=== PATIENT | female | born 1980 | race Caucasian/White ===

== ENCOUNTER 2017-01-19 01:31 | Emergency (ER) | payer SELFPAY ==
[~2017-01-19] VITALS: Ht 160 cm; Wt 55.5 kg
[2017-01-19 01:32] VITALS: BP 112/77
[2017-01-19] MEDS ORDERED: KETOROLAC 30 MG/1 ML ONE (02:00)
[2017-01-19] MEDS ORDERED: PHENAZOPYRIDINE 200 MG TABLET ONE (02:00)
[2017-01-19] MEDS ORDERED: KETOROLAC 30 MG/1 ML IM ONE (02:00)
[2017-01-19] MEDS ORDERED: PHENAZOPYRIDINE 200 MG TABLET PO ONE (02:00)
[2017-01-19 02:22] LABS: BLOOD UREA NITROGEN 16 mg/dL (7-18)
[2017-01-19] MEDS ORDERED: AZITHROMYCIN 500 MG TABLET PO ONE (02:30)
[2017-01-19] MEDS ORDERED: CEFTRIAXONE 250 MG IM ONE (02:30)
[2017-01-19] MEDS ORDERED: CEFTRIAXONE 250 MG ONE (02:39)
[2017-01-19] MEDS ORDERED: AZITHROMYCIN 500 MG TABLET ONE (02:39)
[2017-01-19] MEDS ORDERED: LIDOCAINE 1%, 20ML ONE (02:41)
== END 2017-01-19 04:04 | disposition home or self-care (01) ==
LOC: ED 03:56
DX: N76.0 Acute vaginitis (principal); N30.91 Cystitis, unspecified with hematuria
CPT/HCPCS: 36415; 76830; 80048; 81001; 82040; 84703; 85025; 87077; 87086; 87186; 87210; 87491; 87591; 87808; 96372; 99285; J0696; J1885

== ENCOUNTER 2017-05-13 03:37 | Inpatient (IN) | payer MEDICAID, OTHER ==
[~2017-05-13] VITALS: Ht 160 cm; Wt 47.1 kg
[2017-05-13] MEDS ORDERED: HYDROcodone/APAP 5/325 TABLET ONE (04:09)
[2017-05-13] MEDS ORDERED: HYDROcodone/APAP 5/325 TABLET PO ONE (04:30)
[2017-05-13] MEDS ORDERED: HYDROmorphone 2 MG/ML, 1ML ONE (04:56)
[2017-05-13] MEDS ORDERED: HYDROmorphone 1 MG/ML, 1ML IM ONE (05:00)
[2017-05-13 08:49] VITALS: BP 115/77
[2017-05-13] MEDS ORDERED: POLYETHYLENE GLYCOL 17 GM PACKET PO PRN (09:00)
[2017-05-13] MEDS ORDERED: ONDANSETRON 2MG/ML, 2ML IVPush PRN (09:00)
[2017-05-13] MEDS: SENNA/DOCUSATE TABLET PO SCH (09:00)
[2017-05-13] MEDS ORDERED: GUAIFENESIN/DM 200-20MG, 10ML UDC PO PRN (09:00)
[2017-05-13] MEDS: FAMOTIDINE 20 MG/2 ML IVPush SCH ×2 (09:00→21:31)
[2017-05-13] MEDS ORDERED: ONDANSETRON ODT 4 MG PO PRN (09:00)
[2017-05-13] MEDS ORDERED: LABETALOL 5MG/ML, 20ML IVPush PRN (09:00)
[2017-05-13] MEDS ORDERED: MORPHINE SULFATE 4 MG/ML, 1ML ONE ×2 (09:07→10:39)
[2017-05-13] MEDS: morphine SULFATE 10 MG/ML, 1ML IVPush PRN ×5 (09:11→23:22)
[2017-05-13] MEDS: D5%-0.45% NACL 1,000 ML IV SCH ×2 (09:11→18:40)
[2017-05-13 09:46] LABS: BASOPHILS # (AUTO) 0.05 x10^3/uL (0-0.1); BASOPHILS % (AUTO) 0 % (0-1); EOSINOPHILS # (AUTO) 0.03 x10^3/uL (0-0.4); EOSINOPHILS % (AUTO) 0 % (1-7); LYMPHOCYTES # (AUTO) 1.33 x10^3/uL (1-3.4); LYMPHOCYTES % (AUTO) 9 % (22-44); MD NO; MEAN CORPUSCULAR HEMOGLOBIN 34.1 pg (27.0-34.8); MEAN CORPUSCULAR HGB CONC 33.8 g/dL (32.4-35.8); MEAN CORPUSCULAR VOLUME 100.8 fL (80-100); MEAN PLATELET VOLUME 10.7 fL (7.4-10.4); MONOCYTES # (AUTO) 0.42 x10^3/uL (0.2-0.8); MONOCYTES % (AUTO) 3 % (2-9); NEUTROPHILS # (AUTO) 12.67 x10^3/uL (1.8-6.8); NEUTROPHILS % (AUTO) 87 % (42-75); PLATELET COUNT 136 x10^3/uL (130-400); RED BLOOD COUNT 4.07 x10^6/uL (3.82-5.3); RED CELL DISTRIBUTION WIDTH 12.8 % (9.6-15.2)
[2017-05-13 09:56] LABS: ANION GAP 6 mmol/L (5-15); CALCIUM 8.4 mg/dL (8.5-10.1); CHLORIDE 106 mmol/L (98-107); CREATININE 0.67 mg/dL (0.55-1.02)
[2017-05-13 09:57] LABS: ALANINE AMINOTRANSFERASE 23 U/L (12-78); ALBUMIN 3.6 g/dL (3.4-5.0)
[2017-05-13 09:59] LABS: ALKALINE PHOSPHATASE 55 U/L (45-117); BILIRUBIN,TOTAL 0.5 mg/dL (0.2-1.0); TOTAL PROTEIN 6.9 g/dL (6.4-8.2)
[2017-05-13 14:00] VITALS: BP 118/73
[2017-05-13 16:17] LABS: CULTURE INDICATED? YES; MICROSCOPIC INDICATED
[2017-05-13 16:23] LABS: AMPHETAMINE SCREEN, URINE Positive (Negative); BARBITURATE SCREEN, URINE Negative (Negative); BENZODIAZEPINE SCREEN, URINE Negative (Negative); CANNABINOID SCREEN, URINE Positive (Negative); COCAINE SCREEN, URINE Negative (Negative); METHADONE SCREEN, URINE Negative (Negative); OPIATE SCREEN, URINE Positive (Negative)
[2017-05-13] MEDS: HYDROcodone/APAP 5/325 TABLET PO PRN ×2 (17:37→21:31)
[2017-05-13 20:41] VITALS: BP 111/74
[2017-05-14] MEDS: HYDROcodone/APAP 5/325 TABLET PO PRN ×4 (02:47→20:28)
[2017-05-14] MEDS: D5%-0.45% NACL 1,000 ML IV SCH ×3 (02:48→23:25)
[2017-05-14 04:02] VITALS: BP 119/77
[2017-05-14] MEDS: morphine SULFATE 10 MG/ML, 1ML IVPush PRN ×4 (04:04→21:48)
[2017-05-14 07:37] LABS: BASOPHILS # (AUTO) 0.02 x10^3/uL (0-0.1); BASOPHILS % (AUTO) 0 % (0-1); EOSINOPHILS # (AUTO) 0.22 x10^3/uL (0-0.4); EOSINOPHILS % (AUTO) 3 % (1-7); LYMPHOCYTES # (AUTO) 2.25 x10^3/uL (1-3.4); LYMPHOCYTES % (AUTO) 32 % (22-44); MD NO; MEAN CORPUSCULAR HEMOGLOBIN 34.2 pg (27.0-34.8); MEAN CORPUSCULAR HGB CONC 33.7 g/dL (32.4-35.8); MEAN CORPUSCULAR VOLUME 101.4 fL (80-100); MONOCYTES % (AUTO) 7 % (2-9); NEUTROPHILS # (AUTO) 4.12 x10^3/uL (1.8-6.8); NEUTROPHILS % (AUTO) 58 % (42-75); PLATELET COUNT 124 x10^3/uL (130-400); RED BLOOD COUNT 3.93 x10^6/uL (3.82-5.3)
[2017-05-14] MEDS: SENNA/DOCUSATE TABLET PO SCH (07:45)
[2017-05-14 07:49] LABS: ALANINE AMINOTRANSFERASE 17 U/L (12-78); ALBUMIN 3.1 g/dL (3.4-5.0); ANION GAP 6 mmol/L (5-15); CALCIUM 8.1 mg/dL (8.5-10.1); CHLORIDE 108 mmol/L (98-107); CREATININE 0.75 mg/dL (0.55-1.02)
[2017-05-14 07:51] LABS: ALKALINE PHOSPHATASE 49 U/L (45-117); BILIRUBIN,TOTAL 0.5 mg/dL (0.2-1.0); TOTAL PROTEIN 6.4 g/dL (6.4-8.2)
[2017-05-14] MEDS: FAMOTIDINE 20 MG/2 ML IVPush SCH ×2 (07:51→21:48)
[2017-05-14 08:13] VITALS: BP 105/70
[2017-05-14 13:30] VITALS: BP 110/72
[2017-05-14 13:52] VITALS: BP 107/66
[2017-05-14 20:29] VITALS: BP 118/69
[2017-05-15] MEDS: HYDROcodone/APAP 5/325 TABLET PO PRN ×6 (01:59→21:28)
[2017-05-15 02:14] VITALS: BP 105/69
[2017-05-15] MEDS: SENNA/DOCUSATE TABLET PO SCH (05:39)
[2017-05-15 05:49] LABS: BASOPHILS # (AUTO) 0.04 x10^3/uL (0-0.1); BASOPHILS % (AUTO) 0 % (0-1); EOSINOPHILS % (AUTO) 3 % (1-7); LYMPHOCYTES # (AUTO) 2.43 x10^3/uL (1-3.4); LYMPHOCYTES % (AUTO) 26 % (22-44); MD NO; MEAN CORPUSCULAR HEMOGLOBIN 34.7 pg (27.0-34.8); MEAN PLATELET VOLUME 11.1 fL (7.4-10.4); MONOCYTES # (AUTO) 0.67 x10^3/uL (0.2-0.8); MONOCYTES % (AUTO) 7 % (2-9); NEUTROPHILS # (AUTO) 5.96 x10^3/uL (1.8-6.8); NEUTROPHILS % (AUTO) 63 % (42-75); PLATELET COUNT 124 x10^3/uL (130-400); RED BLOOD COUNT 3.93 x10^6/uL (3.82-5.3); RED CELL DISTRIBUTION WIDTH 13.3 % (9.6-15.2)
[2017-05-15 05:56] LABS: ALBUMIN 3.1 g/dL (3.4-5.0); ANION GAP 6 mmol/L (5-15); CALCIUM 8.6 mg/dL (8.5-10.1); CHLORIDE 108 mmol/L (98-107)
[2017-05-15 06:23] LABS: ALANINE AMINOTRANSFERASE 17 U/L (12-78); ALKALINE PHOSPHATASE 49 U/L (45-117); BILIRUBIN,TOTAL 0.3 mg/dL (0.2-1.0); CREATININE 0.72 mg/dL (0.55-1.02); FOLATE LEVEL 16.6 ng/mL (3.1-17.5); TOTAL PROTEIN 6.4 g/dL (6.4-8.2)
[2017-05-15 07:56] VITALS: BP 108/66
[2017-05-15] MEDS: FAMOTIDINE 20 MG/2 ML IVPush SCH ×2 (08:27→21:05)
[2017-05-15] MEDS: morphine SULFATE 10 MG/ML, 1ML IVPush PRN (08:27)
[2017-05-15] MEDS: D5%-0.45% NACL 1,000 ML IV SCH ×2 (09:32→20:57)
[2017-05-15 13:43] VITALS: BP 118/79
[2017-05-15 20:19] VITALS: BP 129/81
[2017-05-16] MEDS: morphine SULFATE 10 MG/ML, 1ML IVPush PRN ×3 (02:53→10:23)
[2017-05-16 03:13] VITALS: BP 112/70
[2017-05-16 03:45] VITALS: BP 112/70
[2017-05-16 05:50] LABS: BASOPHILS # (AUTO) 0.06 x10^3/uL (0-0.1); BASOPHILS % (AUTO) 1 % (0-1); EOSINOPHILS # (AUTO) 0.22 x10^3/uL (0-0.4); EOSINOPHILS % (AUTO) 3 % (1-7); LYMPHOCYTES # (AUTO) 2.03 x10^3/uL (1-3.4); LYMPHOCYTES % (AUTO) 23 % (22-44); MD NO; MEAN CORPUSCULAR HEMOGLOBIN 34.1 pg (27.0-34.8); MEAN CORPUSCULAR HGB CONC 33.6 g/dL (32.4-35.8); MEAN CORPUSCULAR VOLUME 101.7 fL (80-100); MONOCYTES % (AUTO) 6 % (2-9); NEUTROPHILS # (AUTO) 6.07 x10^3/uL (1.8-6.8); NEUTROPHILS % (AUTO) 68 % (42-75); PLATELET COUNT 141 x10^3/uL (130-400); RED BLOOD COUNT 4.07 x10^6/uL (3.82-5.3)
[2017-05-16 06:02] LABS: ALBUMIN 3.2 g/dL (3.4-5.0); ANION GAP 7 mmol/L (5-15); CALCIUM 8.4 mg/dL (8.5-10.1); CHLORIDE 110 mmol/L (98-107); CREATININE 0.58 mg/dL (0.55-1.02)
[2017-05-16] MEDS: D5%-0.45% NACL 1,000 ML IV SCH ×3 (06:03→23:03)
[2017-05-16] MEDS ORDERED: BALANCED SALT OPHTH IRRIG SOLN 18ML ONE (07:51)
[2017-05-16] MEDS ORDERED: LIDOCAINE 1%, 50ML ONE (07:51)
[2017-05-16] MEDS ORDERED: MUPIROCIN OINT 2%, 22GM ONE ×2 (07:51→07:52)
[2017-05-16] MEDS ORDERED: EPINEPHRINE 1 MG/ML, 1ML ONE (07:51)
[2017-05-16 09:30] VITALS: BP 119/82
[2017-05-16] MEDS: SENNA/DOCUSATE TABLET PO SCH (10:11)
[2017-05-16] MEDS: FAMOTIDINE 20 MG/2 ML IVPush SCH ×2 (10:18→20:23)
[2017-05-16] MEDS ORDERED: MIDAZOLAM 1 MG/ML, 2ML ONE (10:44)
[2017-05-16] MEDS ORDERED: SUFentanil 50 MCG/ML, 1ML ONE (10:45)
[2017-05-16] MEDS ORDERED: LIDOCAINE-MPF 2% ,5ML ONE (10:45)
[2017-05-16] MEDS ORDERED: PROPOFOL 10 MG/ML, 20ML ONE (10:45)
[2017-05-16] MEDS ORDERED: CEFAZOLIN 1,000 MG ONE ×2 (10:47)
[2017-05-16] MEDS ORDERED: SODIUM CHLORIDE 0.9% PF 10ML ONE (10:47)
[2017-05-16] MEDS ORDERED: DOXYCYCLINE 100 MG ONE (10:53)
[2017-05-16] MEDS ORDERED: PHENYLEPHRINE 10 MG/ML ONE (12:17)
[2017-05-16] MEDS ORDERED: ROCURONIUM 10 MG/ML,10ML ONE (12:17)
[2017-05-16] MEDS ORDERED: DEXAMETHASONE 4 MG/ML, 1ML ONE ×2 (12:28)
[2017-05-16] MEDS ORDERED: FENTANYL PF 100 MCG/2ML IV PRN (13:00)
[2017-05-16] MEDS ORDERED: hydrALAzine 20 MG/ML, 1ML IV PRN (13:00)
[2017-05-16] MEDS ORDERED: ACETAMINOPHEN 325 MG TABLET PO PRN (13:00)
[2017-05-16] MEDS ORDERED: MEPERIDINE/PF 25MG/0.5ML IVPush PRN (13:00)
[2017-05-16] MEDS ORDERED: ONDANSETRON 2MG/ML, 2ML IVPush PRN (13:00)
[2017-05-16] MEDS ORDERED: LORazepam 2 MG/ML, 1ML IVPush PRN (13:00)
[2017-05-16] MEDS ORDERED: PROMETHAZINE 25 MG/ML, 1ML IV PRN (13:00)
[2017-05-16] MEDS ORDERED: OXYcodone 5 MG/5 ML ORAL.SOL UDC PO PRN (13:00)
[2017-05-16] MEDS ORDERED: ALBUTEROL SULFATE 2.5 MG/3 ML NPPB PRN (13:00)
[2017-05-16] MEDS ORDERED: HYDROmorphone 1 MG/ML, 1ML IV PRN (13:00)
[2017-05-16] MEDS ORDERED: LABETALOL 5MG/ML, 20ML IV PRN (13:00)
[2017-05-16] MEDS ORDERED: ONDANSETRON 2MG/ML, 2ML ONE ×2 (13:44)
[2017-05-16] MEDS ORDERED: HALOPERIDOL 5 MG/ML ONE (14:28)
[2017-05-16 19:43] VITALS: BP 100/65
[2017-05-16] MEDS: HYDROcodone/APAP 5/325 TABLET PO PRN (20:40)
[2017-05-16 23:42] VITALS: BP 124/81
[2017-05-17] MEDS: HYDROcodone/APAP 5/325 TABLET PO PRN ×3 (02:27→10:47)
[2017-05-17 03:51] VITALS: BP 111/68
[2017-05-17 07:58] VITALS: BP 102/66
[2017-05-17] MEDS ORDERED: BACITRACIN OINT 500U/GM, 15 GM TP SCH (09:00)
[2017-05-17] MEDS: FAMOTIDINE 20 MG/2 ML IVPush SCH (09:38)
[2017-05-17] MEDS: SENNA/DOCUSATE TABLET PO SCH (09:39)
[2017-05-17 12:35] VITALS: BP 105/65
[2017-05-17] MEDS ORDERED: HYDROcodone/APAP 5/325 TABLET PO PRN (13:00)
[2017-05-17] MEDS ORDERED: BACI120O TP (14:52)
[2017-05-17] MEDS ORDERED: ACET650S21 PO (14:53)
[2017-05-17 15:53] VITALS: BP 110/76
== END 2017-05-17 16:29 | disposition home or self-care (01) | DRG 131 ==
LOC: ED 06:20 → EDIP 06:35 → ED 06:52 → 4NOR 07:00 → ED 07:04 → 4NOR 07:04 → ED 07:23 → DCLOUNGE 05-17 16:14
PROVIDERS: ADMIT Hospitalist; ATTEND Hospitalist
PROC: 0NSM04Z Reposition Right Zygomatic Bone with Internal Fixation Device, Open Approach (ICD-10-PCS; principal; 2017-05-16 11:30)
DX: S02.40EA Zygomatic fracture, right side, initial encounter for closed fracture (principal); S02.31XA Fracture of orbital floor, right side, initial encounter for closed fracture; D72.829 Elevated white blood cell count, unspecified; D75.89 Other specified diseases of blood and blood-forming organs; F10.10 Alcohol abuse, uncomplicated; S01.511A Laceration without foreign body of lip, initial encounter; S02.40DA Maxillary fracture, left side, initial encounter for closed fracture; S06.0X0A Concussion without loss of consciousness, initial encounter; S02.2XXA Fracture of nasal bones, initial encounter for closed fracture; F15.90 Other stimulant use, unspecified, uncomplicated; F17.200 Nicotine dependence, unspecified, uncomplicated; Y04.0XXA Assault by unarmed brawl or fight, initial encounter; Y92.59 Other trade areas as the place of occurrence of the external cause; Z85.41 Personal history of malignant neoplasm of cervix uteri
CPT/HCPCS: 36415; 70450; 70486; 71045; 80048; 80053; 80307; 81001; 82040; 82607; 82746; 83735; 84100; 84443; 84703; 85025; 87077; 87086; 87186; 96372; C1713; J0171; J0690; J1100; J1170; J2250; J2405; J2704; J3490; J2270; J2370; S0028

== ENCOUNTER 2019-04-13 19:16 | Emergency (ER) | payer MEDICAID ==
[~2019-04-13] VITALS: Ht 160 cm; Wt 57.7 kg
[~2019-04-13 19:16] MED LIST: ACET650S21 PO; BACI120O TP
[2019-04-13 19:24] VITALS: BP 112/67
== END 2019-04-13 20:51 | disposition home or self-care (01) ==
LOC: ED 20:45
DX: S61.311A Laceration without foreign body of left index finger with damage to nail, initial encounter (principal); S60.122A Contusion of left index finger with damage to nail, initial encounter; F17.200 Nicotine dependence, unspecified, uncomplicated; Y93.89 Activity, other specified; Y92.410 Unspecified street and highway as the place of occurrence of the external cause; Y99.8 Other external cause status
CPT/HCPCS: 29130; 99283

== ENCOUNTER 2019-08-13 22:32 | Emergency (ER) | payer MEDICAID ==
[~2019-08-13] VITALS: Ht 157.5 cm; Wt 52.5 kg
[2019-08-13] MEDS ORDERED: AZITHROMYCIN 500 MG TABLET PO ONE (23:00)
[2019-08-13] MEDS ORDERED: CEFTRIAXONE 250 MG IM ONE (23:00)
--- NOTE | 2019-08-13 23:11 | NUR ---
UA WALKED TO LAB. PT TO BE MDICATED. VSS
[2019-08-13] MEDS ORDERED: AZITHROMYCIN 500 MG TABLET ONE (23:14)
[2019-08-13] MEDS ORDERED: CEFTRIAXONE 250 MG ONE (23:14)
[2019-08-13 23:26] LABS: HCG UR SG 1.028 (1.003-1.030)
[2019-08-13 23:30] LABS: MICROSCOPIC INDICATED
[2019-08-13 23:31] LABS: CULTURE INDICATED? YES
[2019-08-13 23:39] LABS: CLUE CELLS PRESENT (NONE SEEN); WET PREP WBCS FEW (FEW)
[2019-08-13 23:49] VITALS: BP 121/81
--- NOTE | 2019-08-13 23:49 | NUR ---
Patient given discharge instructions and they have confirmed that they understand the instructions. Patient ambulatory with steady gait.
== END 2019-08-13 23:53 | disposition home or self-care (01) ==
LOC: ED 23:51
DX: A56.02 Chlamydial vulvovaginitis (principal); A54.02 Gonococcal vulvovaginitis, unspecified; F17.210 Nicotine dependence, cigarettes, uncomplicated
CPT/HCPCS: 81001; 81025; 87077; 87086; 87210; 87491; 87591; 87808; 96372; 99283; J0696; 87186

== ENCOUNTER 2019-10-17 03:58 | Emergency (ER) | payer MEDICAID ==
[~2019-10-17] VITALS: Ht 160 cm; Wt 55.9 kg
[2019-10-17 04:05] VITALS: BP 127/80
--- NOTE | 2019-10-17 04:12 | NUR ---
WHILE BEING TRIAGED, PT ASKED IF SHE COULD GO BACK OUTSIDE AND "MAKE SURE HE DIDN'T TAKE MY CARD". PT WAS ADVISED SHE COULD LOOK IN THE LOBBY FOR FRIEND BUT IF SHE LEFT THE HOSPITAL SHE WOULD HAVE TO CHECK BACK IN. PT LEFT THE HOSPITAL PROPERTY OUT THE FRONT LOBBY DOOR.
== END 2019-10-17 04:15 | disposition left against medical advice (07) ==
LOC: ED 04:09
DX: R10.9 Unspecified abdominal pain (principal); Z53.21 Procedure and treatment not carried out due to patient leaving prior to being seen by health care provider